=== PATIENT | female | born 1960 | race Caucasian/White ===

== ENCOUNTER 2023-02-26 07:18 | Day surgery (SDC) | payer OTHER ==
[~2023-02-26 07:18] MED LIST: Lactated Ringers 1,000 ML IV SCH; Sodium Chloride 0.9% 10 ML Syringe FLUSH PRN
[2023-02-26] MEDS ORDERED: Midazolam 1 MG/ML 2 ML SDV IV ONE (07:19)
[2023-02-26] MEDS ORDERED: fentaNYL 100 MCG/2 ML SDV IV ONE (07:19)
[2023-02-26] MEDS ORDERED: Propofol 200 MG/20 ML SDV IV ONE (07:19)
[2023-02-26] MEDS ORDERED: Simethicone Drops 40 MG/0.6 ML 30 ML Bottle ONE (08:19)
[2023-02-26 12:14] VITALS: BP 107/60; PULSE 50
== END 2023-02-26 10:15 | disposition home or self-care (01) ==
LOC: FB.SDS 07:18
PROVIDERS: ATTEND Surgery
DX: D12.6 Benign neoplasm of colon, unspecified (principal); K21.9 Gastro-esophageal reflux disease without esophagitis; F41.9 Anxiety disorder, unspecified; R63.4 Abnormal weight loss; Z68.20 Body mass index [BMI] 20.0-20.9, adult; Z98.890 Other specified postprocedural states; Z79.899 Other long term (current) drug therapy; Z88.8 Allergy status to other drugs, medicaments and biological substances; Z91.048 Other nonmedicinal substance allergy status; Z88.0 Allergy status to penicillin; Z91.012 Allergy to eggs; Z88.2 Allergy status to sulfonamides; Z88.5 Allergy status to narcotic agent
CPT/HCPCS: 00811; 45380; 88305; A9270; J2250; J2704; J3010; J7120

== ENCOUNTER 2023-10-21 15:21 | Emergency (ER) | payer OTHER ==
[2023-10-21 15:29] VITALS: BP 119/85; PULSE 101
== END 2023-10-21 15:43 | disposition home or self-care (01) ==
LOC: FB.ED 15:21
DX: T18.128A Food in esophagus causing other injury, initial encounter (principal); K21.9 Gastro-esophageal reflux disease without esophagitis; Z88.5 Allergy status to narcotic agent; Z88.7 Allergy status to serum and vaccine; Z88.0 Allergy status to penicillin; Z88.8 Allergy status to other drugs, medicaments and biological substances; Z88.2 Allergy status to sulfonamides; Z79.51 Long term (current) use of inhaled steroids; Z79.899 Other long term (current) drug therapy; Z90.49 Acquired absence of other specified parts of digestive tract; Z90.710 Acquired absence of both cervix and uterus; W44.F3XA Food entering into or through a natural orifice, initial encounter
CPT/HCPCS: 99283

== ENCOUNTER 2024-03-16 16:53 | Emergency (ER) | payer OTHER ==
[2024-03-16] MEDS ORDERED: Meclizine 25 MG Tab PO ONE (16:54)
[2024-03-16] MEDS: Meclizine 25 MG Tab PO ONE (17:29)
[2024-03-16 18:28] VITALS: BP 114/90; PULSE 77
== END 2024-03-16 18:07 | disposition home or self-care (01) ==
LOC: FB.ED 16:53
DX: R42 Dizziness and giddiness (principal); Z90.49 Acquired absence of other specified parts of digestive tract; Z90.710 Acquired absence of both cervix and uterus; Z79.899 Other long term (current) drug therapy; Z88.0 Allergy status to penicillin; Z88.7 Allergy status to serum and vaccine; Z88.6 Allergy status to analgesic agent; Z88.2 Allergy status to sulfonamides; Z88.8 Allergy status to other drugs, medicaments and biological substances
CPT/HCPCS: 99283; A9270